=== PATIENT | female | born 1955 | race Caucasian/White ===

== ENCOUNTER 2017-02-02 10:34 | Emergency (ER) | payer MEDICAID ==
[2017-02-02 11:27] LABS: CALCIUM 8.9 mg/dL (8.5-10.1); CARBON DIOXIDE 28.1 mmol/L (21-32); CREATININE SERUM 1.6 mg/dL (0.6-1.0); POTASSIUM SERUM 3.4 mmol/L (3.5-5.1)
[2017-02-02 12:34] VITALS: BP 111/72
== END 2017-02-02 12:32 | disposition home or self-care (01) ==
LOC: ED 10:34
PROVIDERS: Emergency Medicine
DX: B34.9 Viral infection, unspecified (principal); N28.9 Disorder of kidney and ureter, unspecified
CPT/HCPCS: J1885; J7613; J7644; Q0092

== ENCOUNTER 2017-06-08 18:43 | Emergency (ER) | payer MEDICAID ==
[2017-06-08 20:19] LABS: BASOPHIL % 0.1 % (0-2); PLATELET COUNT 151 x10^3mcL (130-400); RED CELL DISTRIBUTION WIDTH 13.4 % (11.5-14.5)
[2017-06-08 20:22] LABS: CALCIUM 8.4 mg/dL (8.5-10.1); CARBON DIOXIDE 24.6 mmol/L (21-32); CREATININE SERUM 1.8 mg/dL (0.6-1.0); POTASSIUM SERUM 3.2 mmol/L (3.5-5.1)
[2017-06-08 20:26] LABS: BILIRUBIN TOTAL 0.53 mg/dL (0.20-1.00)
[2017-06-08 20:27] LABS: ALBUMIN 3.2 g/dL (3.4-5.0)
[2017-06-08 21:48] VITALS: BP 98/63
== END 2017-06-08 21:48 | disposition home or self-care (01) ==
LOC: ED 18:43
PROVIDERS: Emergency Medicine
DX: N12 Tubulo-interstitial nephritis, not specified as acute or chronic (principal); N18.9 Chronic kidney disease, unspecified
CPT/HCPCS: J0696; J7030